=== PATIENT | female | born 1965 | race African-American/Black ===

== ENCOUNTER 2016-06-28 12:09 | Emergency (ER) | payer BC ==
[~2016-06-28] VITALS: Ht 154.9 cm; Wt 57.2 kg
[~2016-06-28 12:09] MED LIST: IBUP-1007 PO; TRAM-29 PO
[2016-06-28 12:13] VITALS: BP 138/93
[2016-06-28] MEDS ORDERED: TRAM-29 PO (12:35)
[2016-06-28] MEDS ORDERED: METH-37 PO (12:35)
--- NOTE | 2016-06-28 12:35 | PHYS DOC ---
Past Medical History Past Medical History: Other Additional Past Medical Histor: low back pain Past Surgical History: Hysterectomy Additional Past Surgical Histo: hernia repair, gastric bypass Alcohol Use: Occasionally Drug Use: None Adult General Chief Complaint Chief Complaint: LOWER BACK PAIN OR INJURY HPI HPI Patient is a 50 year old female who presents with moderate low back pain that began today. 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 Patient denies any trauma. Patient denies any pain radiating to bilateral lower extremities. Denies any loss of bowel bladder function. Review of Systems Review of Systems Constitutional: Denies fever or chills [] Eyes: Denies change in visual acuity, redness, or eye pain [] Musculoskeletal: Bilateral low back pain Integument: Denies rash or skin lesions [] Neurologic: Denies headache, focal weakness or sensory changes [] Endocrine: Denies polyuria or polydipsia [] Allergies Allergies Allergies Coded Allergies Type Severity Reaction Last Updated Verified No Known Drug Allergies 04/09/14 No Physical Exam Physical Exam Constitutional: Well developed, well nourished, no acute distress, non-toxic appearance. [] HENT: Normocephalic, atraumatic, bilateral external ears normal, oropharynx moist, no oral exudates, nose normal. [] Eyes: PERRLA, EOMI, conjunctiva normal, no discharge. [] Back: Diffuse tenderness paraspinal muscles of the low lumbar region bilaterally , no midline tenderness, no CVA tenderness. [] Extremities: No tenderness, no cyanosis, no clubbing, ROM intact, no edema. [] Neurologic: Alert and oriented X 3, normal motor function, normal sensory function, no focal deficits noted. [] Psychologic: Affect normal, judgement normal, mood normal. [] Current Patient Data Vital Signs Vital Signs Date Time Temp Pulse Resp B/P Pulse Ox O2 Delivery O2 Flow Rate FiO2 06/28/16 12:13 97.9 84 20 138/93 100 Room Air 97.9 EKG EKG [] Radiology/Procedures Radiology/Procedures [] Course & Med Decision Making Course & Med Decision Making Pertinent Labs and Imaging studies reviewed. (See chart for details) Patient is in the ED with bilateral low back pain, no injury. 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 Discharge pain medicine and muscle relaxers. Provided a note for work. Discharged in stable condition. Dragon Disclaimer Dragon Disclaimer This electronic medical record was generated, in whole or in part, using a voice recognition dictation system. Departure Departure Impression: Primary Impression: Lumbosacral strain Disposition: 01 HOME, SELF-CARE Condition: STABLE Referrals: NINA LOVE MD (PCP) Follow-up with your doctor in 1-2 weeks Patient Instructions: Lumbosacral Strain Additional Instructions: You were seen for back pain suspicious for muscle strain. Avoid lifting anything greater than a gallon of milk for the next 3 days. Apply heat or ice to your back. Use the prescribed medicines as directed. Follow-up with your doctor in one week. Scripts Methocarbamol (Robaxin)500 Mg Tablet1 Tab PO TID PRN MUSCLE SPASMS #30 TAB Prov:KIRTI HENDRICKS APRN 06/28/16 Tramadol Hcl (Ultram)50 Mg Tablet1 Tab PO Q6HRS #30 TAB Prov:KIRTI HENDRICKS APRN 06/28/16 Problem Qualifiers Primary Impression: Lumbosacral strain Encounter type: initial encounter Qualified Code: S39.012A - Strain of muscle, fascia and tendon of lower back, initial encounter KIRTI HENDRICKS APRN Jun 28, 2016 12:35
== END 2016-06-28 12:48 | disposition home or self-care (01) ==
LOC: ER 12:09
DX: S39.012A Strain of muscle, fascia and tendon of lower back, initial encounter (principal); X58.XXXA Exposure to other specified factors, initial encounter; Y93.89 Activity, other specified; Y92.89 Other specified places as the place of occurrence of the external cause; Y99.8 Other external cause status
CPT/HCPCS: 99283

== ENCOUNTER → 2016-08-02 | Day surgery (SDC) | payer BC ==
[~2016-08-02] MED LIST changes: +HYDR-2672 PO; +IV RINGERS,LACTATED 1000ML 1,000 ML IV SCH; +METH-37 PO; +PROPOFOL 20 ML IV ONE
[2016-08-02 17:15] VITALS: BP 150/80
== END | disposition home or self-care (01) ==
LOC: SURG 15:41
PROVIDERS: ATTEND Internal Medicine Gastroenterology
DX: K64.0 First degree hemorrhoids (principal); E66.9 Obesity, unspecified; Z90.710 Acquired absence of both cervix and uterus; M17.10 Unilateral primary osteoarthritis, unspecified knee
CPT/HCPCS: 45378; J2704

== ENCOUNTER → 2016-09-07 | Outpatient (CLI) | payer BC ==
[2016-08-02 17:15] VITALS: BP 150/80
[~2016-09-07] MED LIST changes: -HYDR-2672 PO; +HYDR-2766 PO; -IV RINGERS,LACTATED 1000ML 1,000 ML IV SCH; -PROPOFOL 20 ML IV ONE; -TRAM-29 PO; +TRAM-48 PO
--- NOTE | 2016-09-07 13:29 | RAD ---
Indication pain for several months. A standing AP view incorporating both knees was obtained as well as individual lateral views of both knees and finally a sunrise view incorporated in both knees. Bony mineralization is normal. No acute finding is seen. There is an osteophyte off the right medial femoral condyle and a tiny one off the left. There is slight bicompartmental narrowing involving both knees on the AP view. No acute finding is seen. IMPRESSION: Slight degenerative change involving both knees
== END | disposition home or self-care (01) ==
LOC: RAD 12:28
PROVIDERS: ATTEND Nurse Practitioner
DX: M17.0 Bilateral primary osteoarthritis of knee (principal)
CPT/HCPCS: 73562

== ENCOUNTER → 2016-09-15 | Outpatient (CLI) | payer BC ==
[2016-08-02 17:15] VITALS: BP 150/80
--- NOTE | 2016-09-15 11:31 | RAD ---
DATE: 09/15/2016. EXAM: DIGITAL SCREEN BILAT W/CAD HISTORY: Routine screening. COMPARISON: 09/11/2013. This study was interpreted with the benefit of Computerized Aided Detection (CAD). FINDINGS: No dominant mass or malignant appearing microcalcifications are seen. There are scattered benign-appearing calcifications bilaterally. The axillae are unremarkable. Breast Density: DENSE The breast parenchyma is dense, which could reduce the sensitivity of mammography. Breast parenchyma level density D. IMPRESSION: No mammographic features suspicious for malignancy are identified. BI-RADS CATEGORY: 2 BENIGN FINDING(S) RECOMMENDED FOLLOW-UP: 12M 12 MONTH FOLLOW-UP PQRS compliance statement: Patient information was entered into a reminder system with a target due date 09/15/2017 for the next mammogram. Mammography is a sensitive method for finding small breast cancers, but it does not detect them all and is not a substitute for careful clinical examination. A negative mammogram does not negate a clinically suspicious finding and should not result in delay in biopsying a clinically suspicious abnormality. "Our facility is accredited by the [employer] Mammography Program."
== END | disposition home or self-care (01) ==
LOC: MAMMO 10:43
PROVIDERS: ATTEND Internal Medicine
DX: Z12.31 Encounter for screening mammogram for malignant neoplasm of breast (principal)
CPT/HCPCS: G0202; 77067

== ENCOUNTER 2016-12-27 17:06 | Emergency (ER) | payer BC ==
[~2016-12-27] VITALS: Ht 154.9 cm; Wt 57.2 kg
[2016-12-27 17:15] VITALS: BP 125/75
[2016-12-27] MEDS ORDERED: NAPR500T PO (17:30)
--- NOTE | 2016-12-27 17:31 | PHYS DOC ---
Past Medical History Past Medical History: Other Additional Past Medical Histor: low back pain Past Surgical History: Hysterectomy Additional Past Surgical Histo: hernia repair, gastric bypass, HERNIA Alcohol Use: Occasionally Drug Use: None Adult General Chief Complaint Chief Complaint: KNEE INJURY HPI HPI Patient is a 51 year old female presents to the emergency department with complaints of left lateral knee pain. She states one week ago she bumped it on a bed frame. She's been ambulatory since incident. She is here seeking a prescription for hydrocodone. Review of Systems Review of Systems Constitutional: Denies fever or chills [] Eyes: Denies change in visual acuity, redness, or eye pain [] HENT: Denies nasal congestion or sore throat [] Respiratory: Denies cough or shortness of breath [] Cardiovascular: No additional information not addressed in HPI [] GI: Denies abdominal pain, nausea, vomiting, bloody stools or diarrhea [] : Denies dysuria or hematuria [] Musculoskeletal:knee pain Integument: Denies rash or skin lesions [] Neurologic: Denies headache, focal weakness or sensory changes [] Endocrine: Denies polyuria or polydipsia [] Allergies Allergies Allergies Coded Allergies Type Severity Reaction Last Updated Verified No Known Drug Allergies 08/02/16 No Physical Exam Physical Exam Constitutional: Well developed, well nourished, no acute distress, non-toxic appearance. [] Back: No tenderness, no CVA tenderness. [] Extremities: Left Knee exam without swelling, no laxity on anterior drawer, negative valgus/varus stress test. Full range motion without difficulty. No fluid bulge. Atraumatic Neurologic: Alert and oriented X 3, normal motor function, normal sensory function, no focal deficits noted. [] Current Patient Data Vital Signs Vital Signs Date Time Temp Pulse Resp B/P (MAP) Pulse Ox O2 Delivery O2 Flow Rate FiO2 12/27/16 17:15 97.2 97 18 93 Room Air 97.2 EKG EKG [] Radiology/Procedures Radiology/Procedures [] Course & Med Decision Making Course & Med Decision Making Pertinent Labs and Imaging studies reviewed. (See chart for details) []Cory bandage applied to left knee by nursing staff. Patient tolerated well. Neurovascular intact distally. Dragon Disclaimer Dragon Disclaimer This electronic medical record was generated, in whole or in part, using a voice recognition dictation system. Departure Departure Impression: Primary Impression: Contusion, knee Disposition: HOME, SELF-CARE Condition: STABLE Referrals: JD ODOM MD (PCP) Patient Instructions: Contusion Scripts Naproxen (NAPROSYN) 500 Mg Tablet 500 MG PO BID, #20 TAB Prov: KYLE RAMESH APRN 12/27/16 Problem Qualifiers Primary Impression: Contusion, knee Encounter type: initial encounter Laterality: left Qualified Codes: S80.02XA - Contusion of left knee, initial encounter KYLE RAMESH APRN Dec 27, 2016 17:31
== END 2016-12-27 17:38 | disposition home or self-care (01) ==
LOC: ER 17:06
DX: S80.02XA Contusion of left knee, initial encounter (principal); W22.8XXA Striking against or struck by other objects, initial encounter; Y93.89 Activity, other specified; Y92.89 Other specified places as the place of occurrence of the external cause; Y99.8 Other external cause status
CPT/HCPCS: 99282

== ENCOUNTER → 2017-10-05 | Outpatient (CLI) | payer BC | END | disposition home or self-care (01) | LOC: MAMMO 15:05 | DX: Z12.31 Encounter for screening mammogram for malignant neoplasm of breast (principal); E66.9 Obesity, unspecified | CPT/HCPCS: 77067 ==

== ENCOUNTER 2018-02-26 16:05 | Emergency (ER) | payer SELFPAY ==
[~2018-02-26] VITALS: Ht 154.9 cm; Wt 57.2 kg
[2018-02-26 16:05] VITALS: BP 159/102
[~2018-02-26 16:05] MED LIST changes: -HYDR-2766 PO; +HYDR-2769 PO; +NAPR-683 PO
[2018-02-26] MEDS ORDERED: MORPHINE SULFATE 10 MG/ML VIAL. IV ONE (16:30)
[2018-02-26] MEDS ORDERED: diazePAM 5 MG TABLET PO ONE (16:30)
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
[2018-02-26] MEDS ORDERED: MORPHINE SULFATE 10 MG/ML VIAL. IM ONE (16:45)
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
== END 2018-02-26 19:55 | disposition home or self-care (01) ==
LOC: ER 16:05
DX: S13.8XXA Sprain of joints and ligaments of other parts of neck, initial encounter (principal); S23.3XXA Sprain of ligaments of thoracic spine, initial encounter; G89.29 Other chronic pain; M25.561 Pain in right knee; M54.5 Low back pain; Z90.710 Acquired absence of both cervix and uterus; V43.52XA Car driver injured in collision with other type car in traffic accident, initial encounter; Y93.89 Activity, other specified; Y92.410 Unspecified street and highway as the place of occurrence of the external cause; Y99.8 Other external cause status
CPT/HCPCS: 72125; 72128; 72131; 73562; 96372; 99284; J2270

== ENCOUNTER 2018-06-09 19:04 | Emergency (ER) | payer BC ==
[~2018-06-09] VITALS: Ht 154.9 cm; Wt 57.2 kg
[2018-06-09 19:45] VITALS: BP 111/56
[2018-06-09] MEDS ORDERED: INDO25CA5 PO (19:58)
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
== END 2018-06-09 20:07 | disposition home or self-care (01) ==
LOC: ER 19:04
DX: M25.461 Effusion, right knee (principal); Z90.710 Acquired absence of both cervix and uterus; X50.1XXA Overexertion from prolonged static or awkward postures, initial encounter; Y93.89 Activity, other specified; Y92.89 Other specified places as the place of occurrence of the external cause; Y99.8 Other external cause status
CPT/HCPCS: 99283

== ENCOUNTER 2018-06-19 09:35 | Emergency (ER) | payer BC ==
[~2018-06-19 09:35] MED LIST changes: +INDO25CA5 PO
== END 2018-06-19 09:45 | disposition left against medical advice (07) ==
LOC: ER 09:35
DX: M79.601 Pain in right arm (principal); R20.2 Paresthesia of skin; Z53.21 Procedure and treatment not carried out due to patient leaving prior to being seen by health care provider

== ENCOUNTER 2018-12-06 15:49 | Emergency (ER) | payer BC ==
[~2018-12-06] VITALS: Ht 154.9 cm; Wt 57.2 kg
[~2018-12-06 15:49] MED LIST changes: +INDO25CA21 PO; -INDO25CA5 PO
[2018-12-06 16:07] VITALS: BP 133/76
--- NOTE | 2018-12-06 16:27 | PHYS DOC ---
Past Medical History Past Medical History: Other Additional Past Medical Histor: low back pain Past Surgical History: Hysterectomy Additional Past Surgical Histo: hernia repair, gastric bypass, HERNIA Alcohol Use: Occasionally Drug Use: None Adult General Chief Complaint Chief Complaint: FOOT INJURY PAIN HPI HPI Patient is a 53 year old AA female who presents to the ER with a need for a return to work note. Pt states she stepped on a rock two days ago and her right foot was tender so she was limping and was sent home from work. Pt denies any pain or complaints at this time. Review of Systems Review of Systems Constitutional: Denies fever or chills [] Eyes: Denies change in visual acuity, redness, or eye pain [] HENT: Denies nasal congestion or sore throat [] Respiratory: Denies cough or shortness of breath [] Cardiovascular: No additional information not addressed in HPI [] GI: Denies abdominal pain, nausea, vomiting, or diarrhea [] : Denies dysuria or hematuria [] Musculoskeletal: Denies back pain or joint pain; see HPI [] Integument: Denies rash or skin lesions [] Neurologic: Denies headache, focal weakness or sensory changes [] Complete systems were reviewed and found to be within normal limits, except as documented in this note. Allergies Allergies Allergies Coded Allergies Type Severity Reaction Last Updated Verified No Known Drug Allergies 08/02/16 No Physical Exam Physical Exam Constitutional: Well developed, well nourished, no acute distress, non-toxic appearance. [] HENT: Normocephalic, atraumatic, bilateral external ears normal, nose normal. [] Eyes: PERRLA, EOMI, conjunctiva normal, no discharge. [] Neck: Normal range of motion, no stridor. [] Cardiovascular:Heart rate regular rhythm, no murmur [] Lungs & Thorax: respirations even and unlabored, no retractions Skin: Warm, dry, no erythema, no rash, no bruising. [] Back: No tenderness Extremities: R foot: no tenderness, no cyanosis, no clubbing, ROM intact, no edema. [] Neurologic: Alert and oriented X 3, no focal deficits noted. [] Psychologic: Affect normal, judgement normal, mood normal. [] EKG EKG [] Radiology/Procedures Radiology/Procedures [] Course & Med Decision Making Course & Med Decision Making Pertinent Labs and Imaging studies reviewed. (See chart for details) R foot exam negative for any abnormal findings. Will give patient a note to return to work as of now without restrictions as requested. [] Dragon Disclaimer Dragon Disclaimer This electronic medical record was generated, in whole or in part, using a voice recognition dictation system. Departure Departure Impression: Primary Impression: Encounter to obtain excuse from work Disposition: HOME, SELF-CARE Condition: STABLE Referrals: JD ODOM MD (PCP) Patient Instructions: Exam, Normal, Adult Additional Instructions: May return to work without restrictions as of 12/06/18. RAFAEL ALVARENGA LEAD PROGRAMMER Dec 06, 2018 16:27
== END 2018-12-06 16:30 | disposition home or self-care (01) ==
LOC: ER 15:49
DX: Z02.79 Encounter for issue of other medical certificate (principal)
CPT/HCPCS: 99281

== ENCOUNTER 2018-12-25 11:48 | Emergency (ER) | payer BC ==
[~2018-12-25] VITALS: Ht 154.9 cm; Wt 57.2 kg
[2018-12-25 12:15] VITALS: BP 151/91
--- NOTE | 2018-12-25 13:01 | PHYS DOC ---
Past Medical History Past Medical History: Other Additional Past Medical Histor: low back pain Past Surgical History: Hysterectomy Additional Past Surgical Histo: hernia repair, gastric bypass, HERNIA Alcohol Use: Occasionally Drug Use: None Adult General Chief Complaint Chief Complaint: ABDOMINAL PAIN [facility] HPI Patient is a 53 year old female who presents with complaining of pain. Patient complaining of periumbilical abdominal pain for more than 6 months as an intermittent sharp pain with radiation to suprapubic area that getting worse wi th standing up and bowel movement. Patient denies nausea and vomiting, chills, change of late. Patient had history of gastric bypass in 2013 with 120 pounds weight loss with a stable Review of Systems Review of Systems Constitutional: Denies fever or chills [] Eyes: Denies change in visual acuity, redness, or eye pain [] HENT: Denies nasal congestion or sore throat [] Respiratory: Denies cough or shortness of breath [] Cardiovascular: No additional information not addressed in HPI [] GI: Reports abdominal pain, denies nausea, vomiting, bloody stools or diarrhea [] : Denies dysuria or hematuria [] Musculoskeletal: Denies back pain or joint pain [] Integument: Denies rash or skin lesions [] Neurologic: Denies headache, focal weakness or sensory changes [] Endocrine: Denies polyuria or polydipsia [] All other systems were reviewed and found to be within normal limits, except as documented in this note. Allergies Allergies Allergies Coded Allergies Type Severity Reaction Last Updated Verified No Known Drug Allergies 08/02/16 No Physical Exam Physical Exam Constitutional: Well developed, well nourished, no distress, non-toxic appeara nce. [] HENT: Normocephalic, atraumatic. Eyes: PERRLA, EOMI, conjunctiva normal, no discharge. [] Neck: Normal range of motion, no tenderness, supple, no stridor. [] Cardiovascular:Heart rate regular rhythm, no murmur [] Lungs & Thorax: Bilateral breath sounds clear to auscultation [] Abdomen: Bowel sounds normal, soft, no tenderness, no masses, no pulsatile masses. very small umbilical hernia without tissue inside of hernia. [] Skin: Warm, dry, no erythema, no rash. [] Back: No tenderness, no CVA tenderness. [] Extremities: No tenderness, no cyanosis, no clubbing, ROM intact, no edema. [] Neurologic: Alert and oriented X 3, no focal deficits noted. [] Psychologic: Affect normal, judgement normal, mood normal. [] Current Patient Data Vital Signs Vital Signs Date Time Temp Pulse Resp B/P (MAP) Pulse Ox O2 Delivery O2 Flow Rate FiO2 12/25/18 12:15 98.8 77 16 151/91 (111) 100 Room Air 98.8 EKG EKG [] Radiology/Procedures Radiology/Procedures [][facility] [address] [place] [address] IMAGING REPORT Signed PATIENT: DARRIUS ZAMORA ACCOUNT: [id number] : 1965 LOCATION: ER AGE: 53 SEX: F EXAM STATUS: REG ER ORD. PHYSICIAN: REJI GLEZ MD REASON: abdominal pain and constipation PROCEDURE: ABDOMEN SUPINE & UPRIGHT EXAM: Abdomen, 2 views. HISTORY: Pain. Constipation. COMPARISON: None. FINDINGS: Frontal upright and supine views of the abdomen are obtained. There is a relative paucity of bowel gas. There is moderate stool within the distal colon. There is no evidence of bowel obstruction. There is a surgical anastomosis within the left upper quadrant. There is a prominent cardiac silhouette, possibly projectional. There are pelvic phleboliths. IMPRESSION: Nonobstructive bowel gas pattern. Electronically signed by: Brandi Carson MD (12/25/2018 1:02 PM) [facility] DICTATED and SIGNED BY: BRANDI CARSON MD DATE: 12/25/18 1302 Course & Med Decision Making Course & Med Decision Making Pertinent Imaging studies reviewed. (See chart for details) Evaluation of patient in ER showed 53-year-old female patient with history of chronic abdominal pain and constipation and currently taking hydrocodone presented to ER with complaining of abdominal pain and constipation and also asking for work excuse. Patient had unremarkable physical exam except abdomen and was advised to follow-up with her primary care physician for chronic problem. Dragon Disclaimer Dragon Disclaimer This electronic medical record was generated, in whole or in part, using a voice recognition dictation system. Departure Departure Impression: Primary Impression: Chronic abdominal pain Additional Impressions: Chronic constipation Umbilical hernia Disposition: HOME, SELF-CARE (at 1314) Condition: STABLE Referrals: JD ODOM MD (PCP) MERI GUAJARDO MD Patient Instructions: Abdominal Pain (Nonspecific), Constipation, Adult Additional Instructions: Drink plenty of liquids Follow-up with your primary care physician and on-call surgeon in 3-5 days Return to ER if not getting better Take [id number] MiraLAX and stool softener for constipation Problem Qualifiers Additional Impressions: Umbilical hernia Obstruction and gangrene presence: without obstruction or gangrene Qualified Codes: K42.9 - Umbilical hernia without obstruction or gangrene REJI GLEZ MD Dec 25, 2018 13:01
--- NOTE | 2018-12-25 13:05 | RAD ---
EXAM: Abdomen, 2 views. HISTORY: Pain. Constipation. COMPARISON: None. FINDINGS: Frontal upright and supine views of the abdomen are obtained. There is a relative paucity of bowel gas. There is moderate stool within the distal colon. There is no evidence of bowel obstruction. There is a surgical anastomosis within the left upper quadrant. There is a prominent cardiac silhouette, possibly projectional. There are pelvic phleboliths. IMPRESSION: Nonobstructive bowel gas pattern. Electronically signed by: Brandi Red MD (12/25/2018 1:02 PM) [place] [id number]
== END 2018-12-25 13:26 | disposition home or self-care (01) ==
LOC: ER 11:48
DX: K42.9 Umbilical hernia without obstruction or gangrene (principal); K59.09 Other constipation; G89.29 Other chronic pain; Z90.710 Acquired absence of both cervix and uterus
CPT/HCPCS: 74021; 99284

== ENCOUNTER → 2019-04-08 | Outpatient (CLI) | payer BC ==
--- NOTE | 2019-04-09 17:38 | RAD ---
DATE: 04/08/2019 EXAM: DIGITAL SCREEN BILAT W/CAD HISTORY: Routine screening COMPARISON: 10/05/2017, 09/15/2016, 09/11/2013, 08/24/2012 mammographic exams This study was interpreted with the benefit of Computerized Aided Detection (CAD). Breast Density: DENSE The breast parenchyma is dense, which could reduce the sensitivity of mammography. Breast parenchyma level density D. FINDINGS: Scattered calcifications which are benign in appearance are present bilaterally. No dominant mass. No distortion. IMPRESSION: Stable BI-RADS CATEGORY: 1 NEGATIVE RECOMMENDED FOLLOW-UP: 12M 12 MONTH FOLLOW-UP PQRS compliance statement: Patient information was entered into a reminder system with a target due date for the next mammogram. Mammography is a sensitive method for finding small breast cancers, but it does not detect them all and is not a substitute for careful clinical examination. A negative mammogram does not negate a clinically suspicious finding and should not result in delay in biopsying a clinically suspicious abnormality. "Our facility is accredited by the [employer] Mammography Program."
== END | disposition home or self-care (01) ==
LOC: MAMMO 11:18
PROVIDERS: ATTEND Internal Medicine
DX: Z12.31 Encounter for screening mammogram for malignant neoplasm of breast (principal); N64.89 Other specified disorders of breast
CPT/HCPCS: 77067

== ENCOUNTER 2019-12-16 13:03 | Emergency (ER) | payer BC ==
[~2019-12-16] VITALS: Ht 154.9 cm; Wt 58.6 kg
--- NOTE | 2019-12-16 14:10 | RAD ---
INDICATION: Reason: pain from fall / Spl. Instructions: / History: COMPARISON: None. IMPRESSION: Right shoulder: 3 views obtained. No acute fracture or dislocation. Electronically signed by: Chaparro Tomlinson MD (12/16/2019 2:08 PM) [id number]
[2019-12-16] MEDS ORDERED: CYCL10TA2 PO (14:43)
[2019-12-16] MEDS ORDERED: DICL50TA2 PO (14:43)
[2019-12-16] MEDS ORDERED: METH4TAB2 PO (14:43)
--- NOTE | 2019-12-16 14:43 | PHYS DOC ---
Past Medical History Past Medical History: No Pertinent History, Other Additional Past Medical Histor: low back pain Past Surgical History: Hysterectomy Additional Past Surgical Histo: hernia repair, gastric bypass, HERNIA Smoking Status: Never Smoker Alcohol Use: Occasionally Drug Use: None General Adult EDM: Chief Complaint: SHOULDER INJURY HPI: HPI: Patient is a 54 year old female who presents the ED today complaining of moderate pain to the right shoulder that began yesterday after she fell. Patient states she was walking down some steps with a laundry basket, she states she fell hitting her right shoulder on the wall. Denies any loss of consciousness. Denies hitting her head on the wall or ground. States the pain is worse on raising her right upper extremity up. Describes the pain as throbbing and constant. Denies any numbness or tingling to bilateral upper extremities. She fell down 2 steps. Review of Systems: Review of Systems: Constitutional: Denies fever or chills. [] Musculoskeletal: Reports right shoulder pain Integument: Denies rash. [] Neurologic: Denies headache, focal weakness or sensory changes. [] Psychiatric: Denies depression or anxiety. [] Heart Score: Risk Factors: Risk Factors: DM, Current or recent (<one month) smoker, HTN, HLP, family history of CAD, obesity. Risk Scores: Score 0 - 3: 2.5% MACE over next 6 weeks - Discharge Home Score 4 - 6: 20.3% MACE over next 6 weeks - Admit for Clinical Observation Score 7 - 10: 72.7% MACE over next 6 weeks - Early Invasive Strategies Allergies: Allergies: Allergies Coded Allergies Type Severity Reaction Last Updated Verified No Known Drug Allergies 08/02/16 No Physical Exam: PE: Constitutional: Well developed, well nourished, no acute distress, non-toxic appearance. [] Skin: Warm, dry, no erythema, no rash. [] Back: No tenderness, no CVA tenderness. [] Extremities: Right shoulder with no obvious deformity, no bruising, tenderness on palpation of the right ACM. Slightly limited range of motion to the right shoulder especially raising it up. Adequate radial, medial, ulnar sensation to the right upper extremity. +2 right radial pulse. Cap refill less than 2 seconds the right upper extremity. Neurologic: Alert and oriented X 3, normal motor function, normal sensory function, no focal deficits noted. [] Psychologic: Affect normal, judgement normal, mood normal. [] Current Patient Data: Vital Signs: Vital Signs Date Time Temp Pulse Resp B/P (MAP) Pulse Ox O2 Delivery O2 Flow Rate FiO2 12/16/19 13:40 98.6 81 18 160/101 (120) 99 Room Air 98.6 EKG: EKG: [] Radiology/Procedures: Radiology/Procedures: []PROCEDURE: SHOULDER 2+V RIGHT INDICATION: Reason: pain from fall / Spl. Instructions: / History: COMPARISON: None. IMPRESSION: Right shoulder: 3 views obtained. No acute fracture or dislocation. Electronically signed by: Isidra Muñoz MD (12/16/2019 2:08 PM) [id number] DICTATED and SIGNED BY: ISIDRA MUÑOZ MD DATE: 12/16/19 140 Course & Med Decision Making: Course & Med Decision Making Pertinent Labs and Imaging studies reviewed. (See chart for details) This is a 54-year-old female patient presenting to the ED today with right shoulder pain that began after she hit her right shoulder on the wall going down some steps. Right shoulder x-rays interpreted by radiologist are negative for any acute findings. Discharge with Medrol Dosepak, naproxen and cyclobenzaprine. Follow-up with orthopedic doctor in 1 to 2 weeks. Ice elevation encouraged. Dragon Disclaimer: Kirk Disclaimer: This electronic medical record was generated, in whole or in part, using a voice recognition dictation system. Departure Departure Impression: Primary Impression: Contusion of right shoulder Qualified Codes: S40.011A - Contusion of right shoulder, initial encounter Additional Impression: Fall down stairs Qualified Codes: W10.8XXA - Fall (on) (from) other stairs and steps, initial encounter Disposition: HOME, SELF-CARE Condition: STABLE Referrals: JD ODOM MD (PCP) SARTHAK DANIELS II, MD follow up in 2 weeks Patient Instructions: Contusion, [id number] Additional Instructions: Your right shoulder x-rays are negative for any acute findings. Try to ice and elevate the extremity. Follow-up with orthopedic doctor provided in 1 to 2 weeks. Take the prescribed medications as ordered. Scripts Cyclobenzaprine Hcl (CYCLOBENZAPRINE HCL) 10 Mg Tablet 1 TAB PO TID, #30 TAB Prov: KIRTI HENDRICKS APRN 12/16/19 Diclofenac Potassium (DICLOFENAC POTASSIUM) 50 Mg Tablet 1 TAB PO BID, #20 TAB 0 Refills Prov: KIRTI HENDRICKS APRN 12/16/19 Methylprednisolone (MEDROL) 4 Mg Tab.ds.pk 1 PKG PO UD, #1 PKG Prov: KIRTI HENDRICKS APRN 12/16/19 Justicifation of Admission Dx: Justifications for Admission: Justification of Admission Dx: N/A KIRTI HENDRICKS APRN Dec 16, 2019 14:43
[2019-12-16 14:53] VITALS: BP 151/95
== END 2019-12-16 14:53 | disposition home or self-care (01) ==
LOC: ER 13:03
DX: S40.011A Contusion of right shoulder, initial encounter (principal); R20.2 Paresthesia of skin; Z90.710 Acquired absence of both cervix and uterus; Z98.890 Other specified postprocedural states; W10.8XXA Fall (on) (from) other stairs and steps, initial encounter; Y93.89 Activity, other specified; Y92.89 Other specified places as the place of occurrence of the external cause; Y99.8 Other external cause status
CPT/HCPCS: 73030; 99283

== ENCOUNTER 2020-05-27 17:44 | Emergency (ER) | payer BC ==
[~2020-05-27] VITALS: Ht 154.9 cm; Wt 60.0 kg
[~2020-05-27 17:44] MED LIST changes: +CYCL10TA2 PO; +DICL50TA2 PO; +METH4TAB2 PO
[2020-05-27] MEDS ORDERED: IV NORMAL SALINE 1000ML BAG 1,000 ML IV ONE (18:30)
--- NOTE | 2020-05-27 18:36 | ED.ADGEN ---
Past Medical History Past Medical History: Arthritis, GERD, Other Additional Past Medical Histor: low back pain Past Surgical History: Gastric Bypass, Hysterectomy Additional Past Surgical Histo: hernia repair, gastric bypass, HERNIA, KNEE SCOPE Smoking Status: Never Smoker Alcohol Use: Occasionally Drug Use: None Social History Narrative: PATIENT TAKES HYDROCODONE 10/325 MG AND MORPHINE 15 MG Q 12 HOURS General Adult EDM: Chief Complaint: GI PROBLEM HPI: HPI: Patient is a 54 year old female coming in for sensation of a food bolus impaction. Patient states that yesterday when she was eating tacos to drink of alcohol is felt like it stayed in her mid chest and was burning. Later she threw it up. Has been unable to tolerate any p.o. intake. Patient states she has a history of acid reflux and tried taking some of her antacid medications but immediately threw them up about 2 or 3 seconds later. She has a burning feeling in her mid chest and substernal location. States she has no manage her own secretions but happens with them out. For a gastric lap band multiple abdominal surgeries. Has had a longtime history of acid reflux. States she otherwise has been well and denies any change in bowel movements. Review of Systems: Review of Systems: All other systems within normal limits except for as noted in the HPI Current Medications: Current Medications Medications (Trade) Dose Ordered Sig/Asad Start Time Stop Time Status Last Admin Dose Admin Info (CONTRAST GIVEN -- Rx MONITORING) 1 each PRN DAILY PRN 05/27/20 19:45 05/29/20 19:44 Iohexol (Omnipaque 300 Mg/ml) 75 ml 1X ONCE 05/27/20 20:00 05/27/20 20:01 DC 05/27/20 19:39 75 ML Multi-Ingredient Mouthwash/Gargle (Gi Cocktail) 20 ml 1X ONCE 05/27/20 20:30 05/27/20 20:31 DC 05/27/20 20:44 20 ML Sodium Chloride 1,000 ml @ 1,000 mls/hr 1X ONCE 05/27/20 18:30 05/27/20 19:29 DC 05/27/20 19:47 1,000 MLS/HR Allergies: Allergies: Allergies Coded Allergies Type Severity Reaction Last Updated Verified No Known Drug Allergies 08/02/16 No Physical Exam: PE: Constitutional: Well developed, well nourished, no acute distress, non-toxic ap pearance. [] HENT: Normocephalic, atraumatic, bilateral external ears normal, nose normal, normal oropharynx. [] Eyes: PERRLA, conjunctiva normal, no discharge. [] Neck: No rigidity, supple, no stridor. [] Cardiovascular: Regular rate and rhythm, brisk cap refill [] Lungs & Thorax: Non labored symmetric respirations, no tachypnea or respiratory distress. No reproducible chest pain with palpation [] Abdomen: Soft, nondistended, epigastric and right upper quadrant tenderness.. Skin: Warm, dry, no erythema, no rash. [] Back: Unremarkable Extremities: No deformities, range of motion grossly intact, no lower extremity edema [] Neurologic: Alert and oriented X 3, no focal deficits noted. [] Psychologic: Affect normal, judgement normal, mood normal. [] Current Patient Data: Labs: Laboratory Tests Test 05/27/20 18:10 05/27/20 18:47 05/27/20 19:52 Urine Color Yellow Urine Clarity Clear Urine pH 5.0 (<5.0-8.0) Urine Specific [place] 1.015 (1.000-1.030) Urine Protein Negative mg/dL (NEG-TRACE) Urine Glucose (UA) Negative mg/dL (NEG) Urine Ketones (Stick) Negative mg/dL (NEG) Urine Blood Negative (NEG) Urine Nitrite Negative (NEG) Urine Bilirubin Negative (NEG) Urine Urobilinogen Dipstick 0.2 mg/dL (0.2 mg/dL) Urine Leukocyte Esterase Negative (NEG) Urine RBC 0 /HPF (0-2) Urine WBC 0 /HPF (0-4) Urine Squamous Epithelial Cells Few /LPF Urine Bacteria 0 /HPF (0-FEW) White Blood Count 5.0 x10^3/uL (4.0-11.0) Red Blood Count 3.83 x10^6/uL (3.50-5.40) Hemoglobin 13.0 g/dL (12.0-15.5) Hematocrit 38.1 % (36.0-47.0) Mean Corpuscular Volume 99 fL (79-100) Mean Corpuscular Hemoglobin 34 pg (25-35) Mean Corpuscular Hemoglobin Concent 34 g/dL (31-37) Red Cell Distribution Width 14.8 % (11.5-14.5) H Platelet Count 216 x10^3/uL (140-400) Neutrophils (%) (Auto) 54 % (31-73) Lymphocytes (%) (Auto) 36 % (24-48) Monocytes (%) (Auto) 8 % (0-9) Eosinophils (%) (Auto) 1 % (0-3) Basophils (%) (Auto) 1 % (0-3) Neutrophils # (Auto) 2.7 x10^3/uL (1.8-7.7) Lymphocytes # (Auto) 1.8 x10^3/uL (1.0-4.8) Monocytes # (Auto) 0.4 x10^3/uL (0.0-1.1) Eosinophils # (Auto) 0.0 x10^3/uL (0.0-0.7) Basophils # (Auto) 0.0 x10^3/uL (0.0-0.2) Sodium Level 134 mmol/L (136-145) L Potassium Level 3.7 mmol/L (3.5-5.1) Chloride Level 99 mmol/L (98-107) Carbon Dioxide Level 26 mmol/L (21-32) Anion Gap 9 (6-14) Blood Urea Nitrogen 6 mg/dL (7-20) L Creatinine 0.7 mg/dL (0.6-1.0) Estimated GFR (Cockcroft-Gault) 105.9 BUN/Creatinine Ratio 9 (6-20) Glucose Level 74 mg/dL (70-99) Calcium Level 8.9 mg/dL (8.5-10.1) Total Bilirubin 0.4 mg/dL (0.2-1.0) Aspartate Amino Transferase (AST) 61 U/L (15-37) H Alanine Aminotransferase (ALT) 34 U/L (14-59) Alkaline Phosphatase 108 U/L (46-116) Total Protein 8.0 g/dL (6.4-8.2) Albumin 3.7 g/dL (3.4-5.0) Albumin/Globulin Ratio 0.9 (1.0-1.7) L Lactic Acid Level 2.3 mmol/L (0.4-2.0) H Laboratory Tests 05/27/20 18:47 Laboratory Tests 05/27/20 18:47 Vital Signs: Vital Signs Date Time Temp Pulse Resp B/P (MAP) Pulse Ox O2 Delivery O2 Flow Rate FiO2 05/27/20 19:43 98.2 93 21 147/86 (106) 100 Room Air 98.2 EKG: EKG: [] Heart Score: C/O Chest Pain: N/A HEART Score for Chest Pain: HEART Score for Chest Pain Response (Comments) Value History Slighlty/Non-Suspicious 0 Total 0 Risk Factors: Risk Factors: DM, Current or recent (<one month) smoker, HTN, HLP, family history of CAD, obesity. Risk Scores: Score 0 - 3: 2.5% MACE over next 6 weeks - Discharge Home Score 4 - 6: 20.3% MACE over next 6 weeks - Admit for Clinical Observation Score 7 - 10: 72.7% MACE over next 6 weeks - Early Invasive Strategies Radiology/Procedures: Radiology/Procedures: CT CHEST+ABD+PELVIS W 05/27/2020 7:28 PM INDICATION: Vomiting. Something stuck in esophagus. History of gastric bypass COMPARISON: None available TECHNIQUE: Multiple axial CT images of the chest, abdomen and pelvis were obtained after the intravenous administration of 75 mL Omnipaque 300. Coronal and sagittal reformats are provided. FINDINGS: Minimal tree-in-bud nodular airspace disease identified within the right middle lobe which may represent infectious/inflammatory bronchiolitis. Thyroid is normal in appearance. Heart size within normal limits. There is no pericardial effusion. Thoracic aorta is normal in course and caliber. Small hiatal hernia. No pathologically enlarged thoracic lymph nodes. No pleural effusions, pulmonary vascular congestion or pneumothorax. There is mild hypoattenuation of the hepatic parenchyma suggestive of hepatic steatosis. Spleen, adrenal glands, and pancreas are normal in appearance. High attenuation within the dependent portion of the gallbladder favors sludge or gallstones. The abdominal aorta is normal in course and caliber. There are no pathologically enlarged lymph nodes in the abdomen and pelvis. There is no abdominal free fluid. There is no free intraperitoneal air. The kidneys enhance symmetrically. There is no suspicious renal mass. There is no hydronephrosis. There are no suspected calculi within the kidneys, ureters or urinary bladder. There is mild distention of the distal tip of the appendix measuring up to 8 mm. No periappendiceal inflammatory changes are identified. Urinary bladder is within normal limits given degree of distention. No suspicious pelvic mass. Small fat-containing left inguinal hernia. No acute osseous abnormality is identified. Minimal anterolisthesis of L3 on L4. Moderate disc height loss L5-S1. IMPRESSION: 1. Minimal tree-in-bud nodular airspace disease in the right middle lobe could represent infectious/infiltrate or bronchiolitis. Consideration may be given for early aspiration pneumonia. 2. Postoperative changes are identified from gastric bypass surgery with small hiatal hernia. No evidence for bowel obstruction or inflammation. 3. Mild dilatation of the distal tip of the appendix is nonspecific. If there are any symptoms referable to this region, repeat evaluation with CT pelvis with oral contrast is recommended. 4. Cholelithiasis or sludge within the gallbladder. No adjacent inflammatory changes. [] Impression: Discussed with radiologist does not see any signs of obstruction, patient with no signs of esophageal inflammation. No complications with patient's LAP-BAND. Course & Med Decision Making: Course & Med Decision Making Pertinent Labs and Imaging studies reviewed. (See chart for details) Patient tolerating p.o. water, but having increased pain with swallowing. Patient states she feels like the fluid is getting down to her stomach. No emesis with p.o. intake.. Given GI cocktail and symptoms greatly improved. Discussed with GI. [] Kirk Disclaimer: Kirk Disclaimer: This electronic medical record was generated, in whole or in part, using a voice recognition dictation system. Departure Departure Impression: Primary Impression: Esophagitis Disposition: 01 DC HOME SELF CARE/HOMELESS Condition: IMPROVED Referrals: JD ODOM MD (PCP) KEISHA GASTROINTESTINAL CONS Patient Instructions: Esophagitis Additional Instructions: MIGSIF Scripts Sucralfate (CARAFATE) 1 Gm/10 Ml Oral.susp 10 ML PO TID for antacid for 14 Days, #420 ML 1 Refill before food Prov: JOSE ALEJANDRO SWEENEY MD 05/27/20 JOSE ALEJANDRO SWEENEY MD May 27, 2020 18:36
[2020-05-27 18:59] LABS: BASO % 1 % (0-3); EOS % 1 % (0-3); HEMATOCRIT 38.1 % (36.0-47.0); LYMPH # 1.8 x10^3/uL (1.0-4.8); LYMPH % 36 % (24-48); MEAN CORPUSCULAR HEMOGLOBIN 34 pg (25-35); MEAN CORPUSCULAR HGB CONC 34 g/dL (31-37); MEAN CORPUSCULAR VOLUME 99 fL (79-100); MONO # 0.4 x10^3/uL (0.0-1.1); MONO % 8 % (0-9); NEUT # 2.7 x10^3/uL (1.8-7.7); NEUT % 54 % (31-73); PLATELET COUNT 216 x10^3/uL (140-400); RED BLOOD COUNT 3.83 x10^6/uL (3.50-5.40); RED CELL DISTRIBUTION WIDTH 14.8 % (11.5-14.5)
[2020-05-27 19:00] LABS: BILIRUBIN,URINE NEGATIVE (NEG); CLARITY,URINE CLEAR; COLOR,URINE YELLOW; NITRITE,URINE NEGATIVE (NEG); PROTEIN,URINE NEGATIVE (NEG-TRACE); UROBILINOGEN,URINE 0.2 mg/dL (0.2 mg/dL)
[2020-05-27 19:09] LABS: BACTERIA,URINE 0 /HPF (0-FEW); RBC,URINE 0 /HPF (0-2); WBC,URINE 0 /HPF (0-4)
[2020-05-27 19:16] LABS: CALCIUM 8.9 mg/dL (8.5-10.1); CREATININE 0.7 mg/dL (0.6-1.0); GFR 105.9; POTASSIUM 3.7 mmol/L (3.5-5.1)
[2020-05-27 19:22] LABS: ALBUMIN 3.7 g/dL (3.4-5.0); ALBUMIN/GLOBULIN RATIO 0.9 (1.0-1.7); TOTAL BILIRUBIN 0.4 mg/dL (0.2-1.0)
[2020-05-27] MEDS ORDERED: CONTRAST GIVEN. MC PRN (19:45)
[2020-05-27] MEDS ORDERED: IOHEXOL 300 MG/ML 100ML VIAL. IV ONE (20:00)
--- NOTE | 2020-05-27 20:02 | RAD ---
PQRS Compliance Statement: One or more of the following individualized dose reduction techniques were utilized for this examinat ion: 1. Automated exposure control 2. Adjustment of the mA and/or kV according to patient size 3. Use of iterative reconstruction technique CT CHEST+ABD+PELVIS W 05/27/2020 7:28 PM INDICATION: Vomiting. Something stuck in esophagus. History of gastric bypass COMPARISON: None available TECHNIQUE: Multiple axial CT images of the chest, abdomen and pelvis were obtained after the intraven ous administration of 75 mL Omnipaque 300. Coronal and sagittal reformats are provided. FINDINGS: Minimal tree-in-bud nodular airspace disease identified within the right middle lobe which may repres ent infectious/inflammatory bronchiolitis. Thyroid is normal in appearance. Heart size within normal limits. There is no pericardial effusion. Thoracic aorta is normal in course and caliber. Small hiata l hernia. No pathologically enlarged thoracic lymph nodes. No pleural effusions, pulmonary vascular c ongestion or pneumothorax. There is mild hypoattenuation of the hepatic parenchyma suggestive of hepa tic steatosis. Spleen, adrenal glands, and pancreas are normal in appearance. High attenuation within the dependent portion of the gallbladder favors sludge or gallstones. The abdominal aorta is normal in course and caliber. There are no pathologically enlarged lymph nodes in the abdomen and pelvis. Th ere is no abdominal free fluid. There is no free intraperitoneal air. The kidneys enhance symmetrical ly. There is no suspicious renal mass. There is no hydronephrosis. There are no suspected calculi wit hin the kidneys, ureters or urinary bladder. There is mild distention of the distal tip of the append ix measuring up to 8 mm. No periappendiceal inflammatory changes are identified. Urinary bladder is w ithin normal limits given degree of distention. No suspicious pelvic mass. Small fat-containing left inguinal hernia. No acute osseous abnormality is identified. Minimal anterolisthesis of L3 on L4. Mod erate disc height loss L5-S1. IMPRESSION: 1. Minimal tree-in-bud nodular airspace disease in the right middle lobe could represent infectious/i nfiltrate or bronchiolitis. Consideration may be given for early aspiration pneumonia. 2. Postoperative changes are identified from gastric bypass surgery with small hiatal hernia. No evid ence for bowel obstruction or inflammation. 3. Mild dilatation of the distal tip of the appendix is nonspecific. If there are any symptoms refera ble to this region, repeat evaluation with CT pelvis with oral contrast is recommended. 4. Cholelithiasis or sludge within the gallbladder. No adjacent inflammatory changes. Electronically signed by: Naima Peterson MD (05/27/2020 8:00 PM) [facility]
[2020-05-27] MEDS ORDERED: LIDO:MAALOX 1:1 20 ML SINGLE DOSE. SWSW ONE (20:30)
[2020-05-27] MEDS ORDERED: SUCR1ORA5 PO (21:07)
[2020-05-27 21:08] VITALS: BP 142/86
== END 2020-05-27 21:25 | disposition home or self-care (01) ==
LOC: ER 17:44
DX: K21.00 Gastro-esophageal reflux disease with esophagitis, without bleeding (principal); R20.2 Paresthesia of skin; M19.90 Unspecified osteoarthritis, unspecified site; K21.9 Gastro-esophageal reflux disease without esophagitis; Z90.710 Acquired absence of both cervix and uterus; Z98.890 Other specified postprocedural states
CPT/HCPCS: 36415; 71260; 74177; 80053; 81001; 83605; 85025; 96360; 99285; J7030; Q9967

== ENCOUNTER → 2020-06-16 | Outpatient (CLI) | payer BC ==
[2020-05-27 21:08] VITALS: BP 142/86
[~2020-06-16] MED LIST changes: +SUCR1ORA5 PO
--- NOTE | 2020-06-16 17:10 | RAD ---
DATE: 06/16/2020 2:23 PM EXAM: MAMMO SONIA SCREENING BILATERAL HISTORY: Screening COMPARISON: 04/08/2019 Bilateral CC and MLO views of the breasts were performed. Bilateral breast tomosynthesis was performed in CC and MLO projections. This study was interpreted with the benefit of Computerized Aided Detection (CAD). FINDINGS: Breast Density: DENSE The breast Parenchyma is dense, which could reduce the sensitivity of mammography. Breast parenchyma level density D. No suspicious masses, microcalcifications or architectural distortion is present to suggest malignancy in either breast. The visualized axillae are unremarkable. IMPRESSION: No mammographic evidence of malignancy. BI-RADS CATEGORY: 1 NEGATIVE RECOMMENDED FOLLOW-UP: 12M 12 MONTH FOLLOW-UP Annual screening mammography is recommended, unless clinically indicated sooner based on symptoms or change in physical exam. PQRS compliance statement: Patient information was entered into a reminder system with a target due date for the next mammogram. Mammography is a sensitive method for finding small breast cancers, but it does not detect them all and is not a substitute for careful clinical examination. A negative mammogram does not negate a clinically suspicious finding and should not result in delay in biopsying a clinically suspicious abnormality. "Our facility is accredited by the [employer] Mammography [employer]."
== END ==
LOC: MAMMO 14:08
PROVIDERS: ATTEND Internal Medicine
DX: Z12.31 Encounter for screening mammogram for malignant neoplasm of breast (principal)
CPT/HCPCS: 77063; 77067

== ENCOUNTER 2020-08-29 05:46 | Emergency (ER) | payer BC ==
[~2020-08-29] VITALS: Ht 154.9 cm; Wt 57.7 kg
[2020-08-29] MEDS ORDERED: cefTRIAXone IM 500 MG VIAL. IM ONE (06:45)
[2020-08-29 07:06] LABS: BILIRUBIN,URINE NEGATIVE (NEG); CLARITY,URINE CLOUDY; COLOR,URINE AMBER; NITRITE,URINE NEGATIVE (NEG); PROTEIN,URINE NEGATIVE (NEG-TRACE)
[2020-08-29] MEDS ORDERED: METR500T PO (07:11)
--- NOTE | 2020-08-29 07:12 | ED.ADGEN ---
Past Medical History Past Medical History: Arthritis, GERD, Other Additional Past Medical Histor: low back pain Past Surgical History: Gastric Bypass, Hysterectomy Additional Past Surgical Histo: hernia repair, gastric bypass, HERNIA, KNEE SCOPE Smoking Status: Never Smoker Alcohol Use: Heavy Additional Information: "4 GLASSES OF WINE DAILY" Drug Use: None General Adult EDM: Chief Complaint: VAGINAL PROBLEM HPI: HPI: Patient is a 55-year-old female who presents to the emergency room complaining of vaginal discharge, itching, vaginal pain. Patient states that the discomfort increases with intercourse. Symptoms started about 4 days ago. Discharge has a foul odor and is yellow in color. She denies any dysuria. She does not have any lower abdominal pain. She denies fever, chills, sweats, nausea, vomiting, flank pain. Review of Systems: Review of Systems: Complete ROS is negative unless otherwise documented in HPI Current Medications: Current Medications Medications (Trade) Dose Ordered Sig/Asad Start Time Stop Time Status Last Admin Dose Admin Ceftriaxone Sodium (Rocephin Im) 500 mg 1X ONCE 08/29/20 06:45 08/29/20 06:46 DC 08/29/20 07:05 500 MG Allergies: Allergies: Allergies Coded Allergies Type Severity Reaction Last Updated Verified No Known Drug Allergies 08/02/16 No Physical Exam: PE: Constitutional: Well developed, well nourished, no acute distress, non-toxic appearance. HENT: Normocephalic, atraumatic, bilateral external ears normal, nose normal. Eyes: PERRLA, EOMI, conjunctiva normal, no discharge. Neck: Normal range of motion, no stridor. Cardiovascular: Heart rate regular rhythm Lungs & Thorax: Respirations even and unlabored, no retractions, no respiratory distress Pelvic Exam: Cephalometric Tracer present Abdomen: Nontender, soft External Genitalia: Normal Skin Speculum: Normal vaginal mucosa, yellow vaginal discharge Bimanual: No adnexal masses or tenderness, No CMT Skin: Warm, dry, no erythema, no rash. Back: No tenderness Extremities: No cyanosis, ROM intact, no edema. Neurologic: Alert and oriented X 3, no focal deficits noted. Psychologic: Affect normal, judgement normal, mood normal. Current Patient Data: Labs: Laboratory Tests Test 08/29/20 06:31 Urine Collection Type Unknown Urine Color Kaur Urine Clarity Cloudy Urine pH 5.0 (<5.0-8.0) Urine Specific [place] 1.025 (1.000-1.030) Urine Protein Negative mg/dL (NEG-TRACE) Urine Glucose (UA) Negative mg/dL (NEG) Urine Ketones (Stick) Negative mg/dL (NEG) Urine Blood Negative (NEG) Urine Nitrite Negative (NEG) Urine Bilirubin Negative (NEG) Urine Urobilinogen Dipstick 1.0 mg/dL (0.2 mg/dL) Urine Leukocyte Esterase Moderate (NEG) Urine RBC 0 /HPF (0-2) Urine WBC 1-4 /HPF (0-4) Urine Squamous Epithelial Cells Many /LPF Urine Amorphous Sediment Present /HPF Urine Bacteria 0 /HPF (0-FEW) Urine Mucus Mod /LPF Microbiology 08/29/20 Wet Prep - Final, Complete Vital Signs: Vital Signs Date Time Temp Pulse Resp B/P (MAP) Pulse Ox O2 Delivery O2 Flow Rate FiO2 08/29/20 06:11 98.5 94 16 132/90 (104) 100 Room Air 98.5 EKG: EKG: [] Heart Score: C/O Chest Pain: N/A Risk Factors: Risk Factors: DM, Current or recent (<one month) smoker, HTN, HLP, family history of CAD, obesity. Risk Scores: Score 0 - 3: 2.5% MACE over next 6 weeks - Discharge Home Score 4 - 6: 20.3% MACE over next 6 weeks - Admit for Clinical Observation Score 7 - 10: 72.7% MACE over next 6 weeks - Early Invasive Strategies Radiology/Procedures: Radiology/Procedures: [] Course & Med Decision Making: Course & Med Decision Making Pertinent Labs and Imaging studies reviewed. (See chart for details) Patient is a 55-year-old female presents to the emergency room with vaginal discharge and discomfort. On pelvic exam patient does have yellow discharge without cervical motion tenderness or cervical changes. Wet mount and GC chlamydia swabs were sent. Patient will be treated empirically for GC and chlamydia. Wet mount shows BV. UA negative. Patient's test results and vitals while in the ED were fully reviewed and discussed with the patient. Patient is stable and at this time does not need admission to the hospital. We have discussed strict return precautions and the importance of following up with their Primary Care Physician. Patient stated understanding and was given an opportunity to ask any questions. Patient is in agreement with plan. Kirk Disclaimer: Kirk Disclaimer: This electronic medical record was generated, in whole or in part, using a voice recognition dictation system. Departure Departure Impression: Primary Impression: Bacterial vaginosis Disposition: HOME / SELF CARE / HOMELESS Condition: STABLE Referrals: JD ODOM MD (PCP) Patient Instructions: Bacterial Vaginosis Scripts Metronidazole (FLAGYL) 500 Mg Tablet 1 TAB PO BID, #14 TAB Prov: HILDA LANE MD 08/29/[address] MD Aug 29, 2020 07:12
[2020-08-29 07:21] LABS: AMORPHOUS SEDIMENT,UR PRESENT /HPF; BACTERIA,URINE 0 /HPF (0-FEW); RBC,URINE 0 /HPF (0-2)
[2020-08-29 07:40] VITALS: BP 123/85
[2020-08-31 13:15] LABS: GC PROBE Negative (Negative)
== END 2020-08-29 07:45 | disposition home or self-care (01) ==
LOC: ER 05:46
DX: N76.0 Acute vaginitis (principal); B96.89 Other specified bacterial agents as the cause of diseases classified elsewhere; K21.9 Gastro-esophageal reflux disease without esophagitis; Z90.710 Acquired absence of both cervix and uterus; Z98.84 Bariatric surgery status
CPT/HCPCS: 81001; 87491; 87591; 96372; 99284; J0696; Q0111

== ENCOUNTER 2020-09-06 12:34 | Emergency (ER) | payer BC ==
[~2020-09-06] VITALS: Ht 154.9 cm; Wt 57.2 kg
[~2020-09-06 12:34] MED LIST changes: +METR500T PO
--- NOTE | 2020-09-06 13:25 | PHYS DOC ---
Past Medical History Past Medical History: Arthritis, GERD, Other Additional Past Medical Histor: low back pain Past Surgical History: Gastric Bypass, Hysterectomy Additional Past Surgical Histo: hernia repair, gastric bypass, HERNIA, KNEE SCOPE Smoking Status: Never Smoker Alcohol Use: Heavy Drug Use: None General Adult EDM: Chief Complaint: LOWER EXT PAIN HPI: HPI: Patient is a 55 year old female who presents with 3 weeks of bottom of her feet burning and aching especially when she is up and walking. Denies injury. She is currently on work comp has been at home for the last year because of a shoulder injury at work. 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 She states now she does not do much of anything. She does have an appointment with her primary care doctor next Monday. She rates her discomfort at a 10 out of 10. She states she will try to take Tylenol at times for the pain. She has a history of gastric bypass, hysterectomy, hernia, GERD, arthritis. Review of Systems: Review of Systems: Constitutional: Denies fever or chills. [] Eyes: Denies change in visual acuity. [] HENT: Denies nasal congestion or sore throat. [] Respiratory: Denies cough or shortness of breath. [] Cardiovascular: Denies chest pain or edema. [] GI: Denies abdominal pain, nausea, vomiting, bloody stools or diarrhea. [] : Denies dysuria. [] Musculoskeletal: Denies back pain or joint pain. + Bilateral bottom of the foot burning pain [] Integument: Denies rash. [] Neurologic: Denies headache, focal weakness or sensory changes. + Bilateral bottom of the foot burning [] Endocrine: Denies polyuria or polydipsia. [] Lymphatic: Denies swollen glands. [] Psychiatric: Denies depression or anxiety. [] Heart Score: C/O Chest Pain: No Risk Factors: Risk Factors: DM, Current or recent (<one month) smoker, HTN, HLP, family history of CAD, obesity. Risk Scores: Score 0 - 3: 2.5% MACE over next 6 weeks - Discharge Home Score 4 - 6: 20.3% MACE over next 6 weeks - Admit for Clinical Observation Score 7 - 10: 72.7% MACE over next 6 weeks - Early Invasive Strategies Allergies: Allergies: Allergies Coded Allergies Type Severity Reaction Last Updated Verified tramadol Allergy Intermediate itching 6/20/21 Yes Physical Exam: PE: Constitutional: Well developed, well nourished, no acute distress, non-toxic appearance. [] HENT: Normocephalic, atraumatic, bilateral external ears normal, oropharynx moist, no oral exudates, nose normal. [] Eyes: PERRLA, EOMI, conjunctiva normal, no discharge. [] Neck: Normal range of motion, no tenderness, supple, no stridor. [] Cardiovascular:Heart rate regular rhythm, no murmur [] Lungs & Thorax: Bilateral breath sounds clear to auscultation [] Abdomen: Bowel sounds normal, soft, no tenderness, no masses, no pulsatile masses. [] Skin: Warm, dry, no erythema, no rash. [] Back: No tenderness, no CVA tenderness. [] Extremities: Bilateral bottom of the foot tenderness, no cyanosis, no clubbing, ROM intact, no edema. [] Neurologic: Alert and oriented X 3, normal motor function, normal sensory function, no focal deficits noted. [] Psychologic: Affect normal, judgement normal, mood normal. [] Current Patient Data: Vital Signs: Vital Signs Date Time Temp Pulse Resp B/P (MAP) Pulse Ox O2 Delivery O2 Flow Rate FiO2 09/06/20 12:45 98.9 89 16 141/97 (112) 98 Room Air 98.9 EKG: EK and read by Dr. Maldonado as sinus rhythm and no STEMI. [] Radiology/Procedures: Radiology/Procedures: [] Course & Med Decision Making: Course & Med Decision Making Pertinent Labs and Imaging studies reviewed. (See chart for details) See HPI. Alert and oriented x4. Ambulatory with a steady gait. Cap refill less than 2 seconds. Pedal pulse strong present. No unilateral or peripheral edema bilaterally. Skin pink warm and dry. No calf tenderness. No joint laxity or swelling. No wounds, redness to the skin. Patient's magnesium and potassium were low. She received 2 g of magnesium and 40 of potassium. Patient is discharged home and she is to follow-up with her primary care doctor as scheduled. No EKG changes. [] Dragon Disclaimer: Dragon Disclaimer: This electronic medical record was generated, in whole or in part, using a voice recognition dictation system. Departure Departure Impression: Primary Impression: Hypomagnesemia Additional Impressions: Hypokalemia Neuropathy Disposition: HOME / SELF CARE / HOMELESS Condition: STABLE Referrals: JD ODOM MD (PCP) Patient Instructions: Hypokalemia, Hypomagnesemia Additional Instructions: Follow-up with your primary care provider as scheduled. Drink plenty of fluids. Begin taking vitamin. Scripts Pnv Cmb#95/Ferrous Fumarate/Fa ( TABLET) 1 Each Tablet 1 TAB PO DAILY for 30 Days, #30 TAB 0 Refills Prov: PROMISE CLAUDIO APRN 09/06/20 PROMISE CLAUDIO APRN Sep 06, 2020 13:25
[2020-09-06 13:27] LABS: BASO # 0.1 x10^3/uL (0.0-0.2); BASO % 2 % (0-3); EOS % 1 % (0-3); HEMATOCRIT 36.3 % (36.0-47.0); HEMOGLOBIN 12.4 g/dL (12.0-15.5); LYMPH # 1.8 x10^3/uL (1.0-4.8); LYMPH % 45 % (24-48); MEAN CORPUSCULAR HEMOGLOBIN 36 pg (25-35); MEAN CORPUSCULAR HGB CONC 34 g/dL (31-37); MEAN CORPUSCULAR VOLUME 106 fL (79-100); MONO # 0.6 x10^3/uL (0.0-1.1); MONO % 14 % (0-9); NEUT # 1.6 x10^3/uL (1.8-7.7); NEUT % 39 % (31-73); PLATELET COUNT 324 x10^3/uL (140-400); RED BLOOD COUNT 3.41 x10^6/uL (3.50-5.40); RED CELL DISTRIBUTION WIDTH 13.4 % (11.5-14.5)
[2020-09-06 13:35] LABS: CALCIUM 8.9 mg/dL (8.5-10.1); CREATININE 0.8 mg/dL (0.6-1.0); GFR 90.4; POTASSIUM 3.1 mmol/L (3.5-5.1)
[2020-09-06 13:40] LABS: ALBUMIN 3.5 g/dL (3.4-5.0); MAGNESIUM 1.7 mg/dL (1.8-2.4); TOTAL BILIRUBIN 0.3 mg/dL (0.2-1.0)
[2020-09-06] MEDS ORDERED: POTASSIUM CHLORIDE 20 MEQ TABLET.ER. PO ONE (13:45)
[2020-09-06] MEDS ORDERED: MAGNESIUM SULFATE 2GM 50 ML IV ONE (13:45)
[2020-09-06] MEDS ORDERED: PNV1TABL25 PO (16:30)
[2020-09-06 17:13] VITALS: BP 160/97
--- NOTE | 2020-09-06 17:56 | EKG ---
[address] [place] [address] Test Date: 2020-09-06 Test Time: 14:58:34 Pat Name: DARRIUS ZAMORA Department: Room: Gender: F Audit Director: : 1965 Requested By: PROMISE CLAUDIO Order Number: [id number] Reading MD: Measurements Intervals [place] Rate: 91 P: 57 [place]: 138 QRS: 19 QRSD: 76 T: 26 QT: 376 QTc: 464 Interpretive Statements SINUS RHYTHM QRS(T) CONTOUR ABNORMALITY CONSIDER ANTEROLATERAL MYOCARDIAL DAMAGE POSSIBLY ABNORMAL ECG RI6.01 No previous ECG available for comparison
== END 2020-09-06 17:30 | disposition home or self-care (01) ==
LOC: ER 12:34
DX: G62.9 Polyneuropathy, unspecified (principal); E83.42 Hypomagnesemia; E87.6 Hypokalemia; K21.9 Gastro-esophageal reflux disease without esophagitis; Z90.710 Acquired absence of both cervix and uterus; Z98.84 Bariatric surgery status; Z88.6 Allergy status to analgesic agent
CPT/HCPCS: 36415; 80053; 83735; 85025; 93005; 96365; 96366; 99285; J3475

== ENCOUNTER 2020-09-16 20:47 | Emergency (ER) | payer BC ==
[~2020-09-16] VITALS: Ht 154.9 cm; Wt 55.9 kg
[~2020-09-16 20:47] MED LIST changes: +PNV1TABL25 PO
--- NOTE | 2020-09-16 21:53 | RAD ---
XR CHEST 1V History: Reason: BLE swelling / Spl. Instructions: / History: Comparison: None. Findings: No consolidation or pleural effusion. Normal heart size. No pneumothorax. Impression: 1. No acute cardiopulmonary process. Electronically signed by: Tristian Killian DO (09/16/2020 9:50 PM) [facility]
[2020-09-16 22:19] LABS: BILIRUBIN,URINE NEGATIVE (NEG); CLARITY,URINE CLEAR; COLOR,URINE YELLOW; NITRITE,URINE NEGATIVE (NEG); PROTEIN,URINE NEGATIVE (NEG-TRACE); UROBILINOGEN,URINE 0.2 mg/dL (0.2 mg/dL)
[2020-09-16 22:25] LABS: BACTERIA,URINE 0 /HPF (0-FEW); RBC,URINE 0 /HPF (0-2); WBC,URINE 0 /HPF (0-4)
[2020-09-16 22:26] LABS: BARBITURATES NEG (NEG); BENZODIAZEPINES NEG (NEG); CANNABINOIDS NEG (NEG); COCAINE NEG (NEG); METHADONE NEG (NEG); OPIATES POS (NEG); PHENCYCLIDINE NEG (NEG)
[2020-09-16 22:27] LABS: AMPHETAMINE/METHAMPHETAMINE NEG (NEG)
--- NOTE | 2020-09-16 23:00 | PHYS DOC ---
Past Medical History Past Medical History: Arthritis, GERD, Other Additional Past Medical Histor: low back pain Past Surgical History: Gastric Bypass, Hysterectomy Additional Past Surgical Histo: hernia repair, gastric bypass, HERNIA, KNEE SCOPE, R SHOULDER Smoking Status: Never Smoker Alcohol Use: Sober Drug Use: None General Adult EDM: Chief Complaint: LOWER EXTREMITY EDEMA HPI: HPI: Patient is a 55 year old female with history of arthritis who presents the ED today complaining of feeling drowsy and bilateral lower extremity pain with swelling. She rates her pain to bilateral lower extremity at 10 out of 10 describes it as sharp and constant. Patient states symptoms began on Monday which is 6 days ago. She states she was able to be seen by her PCP who started on gabapentin 100mg. She states now she feels drowsy on gabapentin. Patient denies any chest pain, shortness of breath, injuries. Review of Systems: Review of Systems: Constitutional: Denies fever or chills. [] Eyes: Denies change in visual acuity. [] HENT: Denies nasal congestion or sore throat. [] Respiratory: Denies cough or shortness of breath. [] Cardiovascular: Denies chest pain or edema. [] GI: Denies abdominal pain, nausea, vomiting, bloody stools or diarrhea. [] : Denies dysuria. [] Musculoskeletal: Reports bilateral lower extremity pain and swelling, denies any back pain. Integument: Denies rash. [] Neurologic: Reports drowsiness. Denies headache, focal weakness or sensory changes. [] Psychiatric: Denies depression or anxiety. [] Heart Score: C/O Chest Pain: N/A Risk Factors: Risk Factors: DM, Current or recent (<one month) smoker, HTN, HLP, family history of CAD, obesity. Risk Scores: Score 0 - 3: 2.5% MACE over next 6 weeks - Discharge Home Score 4 - 6: 20.3% MACE over next 6 weeks - Admit for Clinical Observation Score 7 - 10: 72.7% MACE over next 6 weeks - Early Invasive Strategies Allergies: Allergies: Allergies Coded Allergies Type Severity Reaction Last Updated Verified tramadol Allergy Intermediate itching 09/06/20 Yes Physical Exam: PE: Constitutional: Patient appears drowsy, slurred speech. Well developed, well nourished, no acute distress, non-toxic appearance. [] HENT: Normocephalic, atraumatic, bilateral external ears normal, oropharynx moist, no oral exudates, nose normal. [] Eyes: PERRLA, EOMI, conjunctiva normal, no discharge. [] Neck: Normal range of motion, no tenderness, supple, no stridor. [] Cardiovascular:Heart rate regular rhythm, no murmur [] Lungs & Thorax: Bilateral breath sounds clear to auscultation [] Abdomen: Bowel sounds normal, soft, no tenderness, no masses, no pulsatile masses. [] Skin: Warm, dry, no erythema, no rash. [] Back: No tenderness, no CVA tenderness. [] Extremities: No tenderness, no cyanosis, no clubbing, ROM intact, +1 to bilateral lower extremity edema bilateral lower extremity edema, negative Homans' sign bilaterally Neurologic: Alert and oriented X 3, normal motor function, normal sensory function, no focal deficits noted. [] Psychologic: Flat affect Current Patient Data: Labs: Laboratory Tests Test 09/16/20 21:50 Urine Collection Type Unknown Urine Color Yellow Urine Clarity Clear Urine pH 5.0 (<5.0-8.0) Urine Specific [place] <=1.005 (1.000-1.030) Urine Protein Negative mg/dL (NEG-TRACE) Urine Glucose (UA) Negative mg/dL (NEG) Urine Ketones (Stick) Negative mg/dL (NEG) Urine Blood Negative (NEG) Urine Nitrite Negative (NEG) Urine Bilirubin Negative (NEG) Urine Urobilinogen Dipstick 0.2 mg/dL (0.2 mg/dL) Urine Leukocyte Esterase Negative (NEG) Urine RBC 0 /HPF (0-2) Urine WBC 0 /HPF (0-4) Urine Squamous Epithelial Cells Few /LPF Urine Bacteria 0 /HPF (0-FEW) Urine Opiates Screen Pos (NEG) Urine Methadone Screen Neg (NEG) Urine Barbiturates Neg (NEG) Urine Phencyclidine Screen Neg (NEG) Urine Amphetamine/Methamphetamine Neg (NEG) Urine Benzodiazepines Screen Neg (NEG) Urine Cocaine Screen Neg (NEG) Urine Cannabinoids Screen Neg (NEG) Urine Ethyl Alcohol Pos (NEG) Vital Signs: Vital Signs Date Time Temp Pulse Resp B/P (MAP) Pulse Ox O2 Delivery O2 Flow Rate FiO2 09/16/20 21:28 98.3 101 20 147/93 (111) 98 Room Air 98.3 EKG: EKG: [] Radiology/Procedures: Radiology/Procedures: []PROCEDURE: PORTABLE CHEST 1V XR CHEST 1V History: Reason: BLE swelling / Spl. Instructions: / History: Comparison: None. Findings: No consolidation or pleural effusion. Normal heart size. No pneumothorax. Impression: 1. No acute cardiopulmonary process. Electronically signed by: Markell Churchill DO (09/16/2020 9:50 PM) [facility] DICTATED and SIGNED BY: MARKELL CHURCHILL DO DATE: 09/16/20 [id number] 0 Course & Med Decision Making: Course & Med Decision Making Pertinent Labs and Imaging studies reviewed. (See chart for details) This is a 55-year-old female patient presenting to the ED today complaining of bilateral lower extremity pain and swelling that began on Monday as well as drowsiness. Patient states the drowsiness began after she was started on gabapentin 100 mg by her doctor for the pain and swelling. Chest x-ray is negative, venous Dopplers of bilateral lower extremities are negative for DVT. Patient is drowsy in the ED but arousable and able to talk though she has slurred speech, unfortunately she is positive for alcohol. I also checked her out on [facility] and noted on September 11, 2020 she filled gabapentin 100 mg 180 tablets which is a 30-day supply, morphine sulfate extended release 15 mg 60 tablets which is a 30-day supply as well as hydrocodone 10/325 100 tablets which is a 30-day supply. Patient never disclosed this information when we initially talked. I recommended she goes home and talk to her PCP about removing her from this many narcotics. Informed patient she cannot drink and take narcotics. Patient was very resistant to getting help for drug and alcohol use. She states she cannot live without this medicines. Compression stocking and elevation of bilateral lower extremities recommended Dragon Disclaimer: Dragon Disclaimer: This electronic medical record was generated, in whole or in part, using a voice recognition dictation system. Departure Departure Impression: Primary Impression: Drowsiness Additional Impressions: Adverse drug effect Qualified Codes: T50.905A - Adverse effect of unspecified drugs, medicaments and biological substances, initial encounter Swelling of lower extremity Alcohol intoxication Qualified Codes: F10.929 - Alcohol use, unspecified with intoxication, unspecified Disposition: 01 HOME / SELF CARE / HOMELESS Condition: STABLE Referrals: JD ODOM MD (PCP) Follow-up with your own doctor in 1 week Patient Instructions: Alcohol and Drug Addiction, Finding Treatment, Edema, [id number] Additional Instructions: You were evaluated in the emergency room, you are noted to take gabapentin, morphine, and hydrocodone as well as drinking. You cannot take this many pain medicines as well as drinking, this will make you drowsy. Please consider talking to your doctor to remove it from some of this medicines. Consider elevating your lower extremities. Consider wearing compression stockings, consider getting help for alcohol abuse. KIRTI HENDRICKS DELIVERY CONSULTANT Sep 16, 2020 23:00
[2020-09-16 23:07] VITALS: BP 140/103
--- NOTE | 2020-09-16 23:34 | RAD ---
Exam: US BILATERAL LOWEREXTREMITY VENOUS DOPPLER Indication: Reason: BLE swelling / Spl. Instructions: / History: Technique: Color-flow and pulsed wave duplex ultrasound with compression of venous structures of th e bilateral lower extremities. Comparison: None Available. Findings: Duplex ultrasound with compression of the deep venous structures of the bilateral lower ext remities from the common femoral vein through the popliteal vein is negative for DVT. The posterior t ibial and peroneal veins are segmentally visualized and patent where seen. Normal venous waveforms an d augmentation are noted throughout. Right popliteal cyst measuring 2.7 cm. Impression: No evidence for DVT in the bilateral lower extremities. Electronically signed by: Kurtis Vines MD (09/16/2020 11:31 PM) [facility]
== END 2020-09-16 23:15 | disposition home or self-care (01) ==
LOC: ER 20:47
DX: T50.905A Adverse effect of unspecified drugs, medicaments and biological substances, initial encounter (principal); R40.0 Somnolence; F10.929 Alcohol use, unspecified with intoxication, unspecified; Y90.9 Presence of alcohol in blood, level not specified; K21.9 Gastro-esophageal reflux disease without esophagitis; Z98.84 Bariatric surgery status; Y92.89 Other specified places as the place of occurrence of the external cause
CPT/HCPCS: 71045; 80307; 81001; 93970; 99285-25